=== PATIENT | female | born 1985 | race Caucasian/White ===

== ENCOUNTER 2018-06-03 23:36 | Emergency (ER) | payer MEDICAID, OTHER ==
[2018-06-04] MEDS: DIPHENHYDRAMINE 50 MG INJ IM (02:01)
[2018-06-04] MEDS: KETOROLAC 60 MG INJ IM (02:02)
== END 2018-06-04 05:27 | disposition home or self-care (01) ==
LOC: FTE 23:36
DX: S39.012A Strain of muscle, fascia and tendon of lower back, initial encounter (principal); S46.919A Strain of unspecified muscle, fascia and tendon at shoulder and upper arm level, unspecified arm, initial encounter; L29.9 Pruritus, unspecified; J45.909 Unspecified asthma, uncomplicated; V49.40XA Driver injured in collision with unspecified motor vehicles in traffic accident, initial encounter
CPT/HCPCS: 96372; 99284-25; J1200